=== PATIENT | male | born 1960 | race African-American/Black ===

== ENCOUNTER 2017-01-31 16:39 | Emergency (ER) | payer SELFPAY ==
[~2017-01-31] VITALS: Ht 177.8 cm; Wt 84.0 kg
[~2017-01-31 16:39] MED LIST: ACET1TAB40 PO; CEPH-443 PO; IBUP-1542 PO
[2017-01-31 17:06] VITALS: Ht 177.8 cm; Wt 84.0 kg
== END 2017-01-31 20:43 | disposition left against medical advice (07) ==
LOC: E/R 16:39
DX: Z53.21 Procedure and treatment not carried out due to patient leaving prior to being seen by health care provider (principal)

== ENCOUNTER 2017-02-07 11:47 | Inpatient (IN) | payer MEDICAID ==
[~2017-02-07] VITALS: Ht 172.7 cm; Wt 85.5 kg
[2017-02-07] MEDS ORDERED: SOD CHLORIDE 0.9% 1,000 ML IV STA (14:40)
[2017-02-07] MEDS ORDERED: morphine 2 MG INJ IV STA (14:40)
--- NOTE | 2017-02-07 15:45 | RADRPT ---
PROCEDURE: CT scan of the abdomen and pelvis without IV contrast. CLINICAL INDICATION: Abdominal pain. TECHNIQUE: Thin section axial, coronal and sagittal images were performed through the abdomen and pelvis without contrast. Radiation Dose: CTDI: 15.2 and DLP: 918.4 One or more of the following dose reduction techniques were used: - Automated exposure control. - Adjustment of the mA and/or kV according to patient size. Use of iterative reconstruction technique. COMPARISON: Chest x-ray 11/16/2016 06:18 a.m. FINDINGS: Soft tissues: There is bilateral symmetric gynecomastia.. Lungs and pleural spaces: Normal. There is respiratory motion artifact blurring vascular detail. N o pleural effusion is identified. Heart: Normal. The heart is mildly enlarged. No pericardial effusion is identified. The liver, common bile duct and gallbladder: A 5.7 mm lesion which is likely a cyst is noted in the medial segment of the left lobe of the liver. No additional workup is recommended. The liver measu res 16.5 cm AP. The gallbladder and gallbladder wall are normal. Gastrointestinal: The stomach is normal. There is some mucosal thickening in small bowel loops in t he left upper abdomen. The vermiform appendix is normal. There is mucosal thickening in the hepatic flexure, transverse colon, splenic flexure and rectal amp rojas appear Pancreas: Normal. Kidneys, bladder and adrenal glands : Normal. Spleen: Normal. Lymph nodes: Normal. There is a left inguinal hernia which contains fat. Reproductive system and pelvis : The prostate gland is upper limits of normal for size. The seminal vesicles are normal. No free fluid is noted in the pelvis. There are degenerative changes of the lumbar spine and sacroiliac joints. No acute bony fracture or bone metastasis is identified. Bony elements: There is disk space narrowing with ventral spondylosis and vacuum disk phenomenon at L5-S1. No bone metastasis or acute bony fracture is identified. There is trace air in the epidural space dorsal to S1. Vasculature: Atherosclerotic vascular calcifications are present in the proximal right common iliac artery and in the right left internal iliac arteries. IMPRESSION: 1. Mild cardiomegaly. 2. Hepatomegaly. See C 5.7 mm lesion which is most likely a cyst in the medial segment of the left lobe of the liver. No additional follow-up recommended at this time. 3. Colitis involving portions of the transverse, descending and rectosigmoid colon. Ulcerative col itis could present this fashion. Mucosal thickening of a small bowel loop in the left upper abdomen which may be the result of a small bowel enteritis or incomplete distension. Exact etiology unknow n. 4. Left inguinal hernia containing fat. 5. Bilateral gynecomastia. 6. Atherosclerotic vascular disease. RPTAT:AAJJ Physician Gary Date Time Electronically viewed and signed by Harris Sandra, Physician on 02/07/2017 15:44 CHANDRAKANT/
[2017-02-07 15:47] LABS: ADD SCAN DIFF NO
[2017-02-07 15:52] LABS: BASOPHIL # 0.1 10^3/ul (0.0-0.1); BASOPHILS % 0.3 % (0.0-2.0); EOSINOPHILS # 0.2 10^3/ul (0.0-0.5); EOSINOPHILS % 1.5 % (0.0-7.0); HEMATOCRIT 43.9 % (42.0-52.0); LYMPHOCYTES # 1.5 10^3/ul (0.8-2.9); LYMPHOCYTES % 9.1 % (15.0-51.0); MEAN CORPUSCULAR HEMOGLOBIN 30.6 pg (29.0-33.0); MEAN CORPUSCULAR HGB CONC 31.9 g/dl (32.0-37.0); MEAN CORPUSCULAR VOLUME 96.1 fl (82.0-101.0); MEAN PLATELET VOLUME 10.9 fl (7.4-10.4); MONOCYTE # 0.9 10^3/ul (0.3-0.9); MONOCYTES % 5.8 % (0.0-11.0); NEUTROPHIL # 13.3 10^3/ul (1.6-7.5); NEUTROPHILS % 82.7 % (39.0-77.0); PLATELET COUNT 191 10^3/UL (140-415); RED BLOOD COUNT 4.57 10^6/ul (4.70-6.10); RED CELL DISTRIBUTION WIDTH 12.7 % (11.5-14.5); WHITE BLOOD COUNT 16.1 10^3/ul (4.8-10.8)
[2017-02-07 16:04] LABS: INR 0.9; PARTIAL THROMBOPLASTIN TIME 24.7 Sec (25.0-35.0); PROTIME 12.1 Sec (12.2-14.2); PT RATIO 0.9
[2017-02-07 16:08] LABS: ADD UMIC YES; URINE BILIRUBIN (Dip) NEGATIVE (NEGATIVE); URINE BLOOD (Dip) TRACE (NEGATIVE); URINE COLOR LT. YELLOW (YELLOW); URINE GLUCOSE (Dip) NEGATIVE (NEGATIVE); URINE KETONES (Dip) 3+ (NEGATIVE); URINE LEUKOCYTE ESTERASE (Dip) 2+ (NEGATIVE); URINE NITRITE (Dip) NEGATIVE (NEGATIVE); URINE TOTAL PROTEIN (Dip) NEGATIVE (NEGATIVE); URINE UROBILINOGEN (Dip) 0.2 E.U./dL (0.1-1.0)
[2017-02-07] MEDS ORDERED: CEFTRIAXONE 1 GM/50 ML (PMX) 50 ML IVPB STA (16:17)
--- NOTE | 2017-02-07 16:19 | RADRPT ---
PROCEDURE: Scrotal ultrasound CLINICAL INDICATION: Pain. TECHNIQUE: Scrotal ultrasound was performed with sagittal and transverse views. Dc scale and co pooja imaging was performed. Images were reviewed on high resolution PACS monitors. COMPARISON: None available FINDINGS: The right testicle measures 4.3 x 1.7 x 2.7 cm. There is normal size, echogenicity, and morphology o f the right testicle. The right epididymis is normal in appearance. The left testicle measures 4.0 x 1.9 x 2.5 cm. There is normal size, echogenicity, and morphology of the left testicle. The left epididymis is normal in appearance.. There are small bilateral hydroceles and there is a left varicocele. There is normal flow within the right testicle. There is asymmetric increased flow within the left testicle. IMPRESSION: 1. Left epididymo-orchitis. 2. Small bilateral hydroceles. 3. Left varicocele. RPTAT: GG .Davdi Perera MD, Date Time Electronically viewed and signed by .David Perera MD, MD on 02/07/2017 16:18 .P/
[2017-02-07] MEDS ORDERED: morphine 4 MG/ML VIAL IV STA ×2 (16:20→20:06)
[2017-02-07 16:26] LABS: BACTERIA,URINE MANY; SQUAMOUS EPITHELIAL CELL,UR FEW; URINE RBCS 0-2 /HPF (0)
[2017-02-07] MEDS ORDERED: metroNIDAZOLE 500 MG/NS (PMX) 100 ML IVPB ONE (16:30)
[2017-02-07] MEDS ORDERED: DICLOFENAC SODIUM 37.5 MG/ML VIAL IV STA (16:52)
[2017-02-07] MEDS ORDERED: AZITHROMYCIN 250 MG TAB PO ONE (17:00)
[2017-02-07 17:25] LABS: ALBUMIN/GLOBULIN RATIO 1.29; BILIRUBIN,INDIRECT 0.9 mg/dl (0-1.1); BILIRUBIN,TOTAL 0.9 mg/dl (0.2-1.3); CREATININE 0.69 mg/dl (0.61-1.24); POTASSIUM 4.3 mmol/L (3.5-5.1); TOTAL PROTEIN 7.1 g/dl (6.1-8.1)
[2017-02-07] MEDS ORDERED: ACETAMINOPHEN 325 MG TAB PO PRN (18:00)
[2017-02-07] MEDS ORDERED: ONDANSETRON 4 MG INJ IV PRN (18:00)
--- NOTE | 2017-02-07 18:18 | ERA ---
ER Documentation Chief Complaint Date/Time DATE: 02/07/17 TIME: 18:16 Chief Complaint LEFT SIDE ABDOMINAL AND GROIN PAIN HPI This 56-year-old male presents emergency room with severe left-sided abdominal pain and groin pain going down into his testicles. He is also been feeling generalized weakness and malaise. He denies any trauma. He has had nausea without vomiting. He denies diarrhea. ROS All systems reviewed and are negative except as per history of present illness. Medications Home Meds Active Scripts Ibuprofen* (Motrin*) 600 Mg Tab, 600 MG PO Q6, #30 TAB Prov:HUSSAIN CHAPMAN MD 07/26/16 Discontinued Scripts Acetaminophen with Codeine (Acetaminophen-Cod #3 Tablet) 1 Each Tablet, 1 TAB PO Q6H Y for PAIN, #12 TAB Prov:HUSSAIN CHAPMAN MD 07/26/16 Cephalexin* (Keflex*) 500 Mg Capsule, 500 MG PO QID for 10 Days, CAP Prov:HUSSAIN CHAPMAN MD 07/26/16 Allergies Allergies: Coded Allergies: No Known Allergy (Unverified , 02/07/17) PMhx/Soc Medical and Surgical Hx: pt denies Medical Hx, pt denies Surgical Hx History of Surgery: No Anesthesia Reaction: No Hx Neurological Disorder: No Hx Respiratory Disorders: No Hx Cardiac Disorders: No Hx Psychiatric Problems: No Hx Miscellaneous Medical Probl: No Hx Alcohol Use: No Hx Substance Use: No Hx Tobacco Use: No Smoking Status: Never smoker Physical Exam Vitals Vital Signs Date Time Temp Pulse Resp B/P Pulse Ox O2 Delivery O2 Flow Rate FiO2 02/07/17 18:30 98.0 71 20 106/95 99 Room Air 02/07/17 17:46 75 20 115/75 99 Room Air 02/07/17 11:57 98.0 91 18 127/91 98 Physical Exam Const: [] Moderate distress, holding abdomen, does not appear well Head: Atraumatic Eyes: Normal Conjunctiva ENT: Normal External Ears, Nose and Mouth. Neck: Full range of motion..~ No meningismus. Resp: Clear to auscultation bilaterally Cardio: Regular rate and rhythm, no murmurs Abd: Soft, moderate abdominal tenderness to the mid abdomen as well as left mid and left lower quadrant. Normal appearance of testicles without testicular tenderness, normal appearance of penis without tenderness. non distended. Normal bowel sounds Skin: No petechiae or rashes Back: No midline or flank tenderness Ext: No cyanosis, or edema Neur: Awake and alert and oriented 3, no focal deficits Psych: Normal Mood and Affect Result Diagram: 02/07/17 1540 02/07/17 1540 Results 24 hrs Laboratory Tests Test 02/07/17 15:10 02/07/17 15:40 02/07/17 16:40 Urine Color LT. YELLOW Urine Clarity CLOUDY Urine pH 7.0 Urine Specific [place] 1.020 Urine Ketones 3+ Urine Nitrite NEGATIVE Urine Bilirubin NEGATIVE Urine Urobilinogen 0.2 E.U./dL Urine Leukocyte Esterase 2+ Urine Microscopic RBC 0-2/HPF Urine Microscopic WBC >50/HPF Urine Squamous Epithelial Cells FEW Urine Bacteria MANY Urine Hemoglobin TRACE Urine Glucose NEGATIVE% Urine Total Protein NEGATIVE White Blood Count 16.110^3/ul Red Blood Count 4.5710^6/ul Hemoglobin 14.0g/dl Hematocrit 43.9% Mean Corpuscular Volume 96.1fl Mean Corpuscular Hemoglobin 30.6pg Mean Corpuscular Hemoglobin Concent 31.9g/dl Red Cell Distribution Width 12.7% Platelet Count 77735^3/UL Mean Platelet Volume 10.9fl Neutrophils % 82.7% Lymphocytes % 9.1% Monocytes % 5.8% Eosinophils % 1.5% Basophils % 0.3% Nucleated Red Blood Cells % 0.0/100WBC Neutrophils # 13.310^3/ul Lymphocytes # 1.510^3/ul Monocytes # 0.910^3/ul Eosinophils # 0.210^3/ul Basophils # 0.110^3/ul Nucleated Red Blood Cells # 0.010^3/ul Prothrombin Time 12.1Sec Prothrombin Time Ratio 0.9 INR International Normalized Ratio 0.90 Activated Partial Thromboplast Time 24.7Sec Sodium Level 136mmol/L Potassium Level 4.3mmol/L Chloride Level 108mmol/L Carbon Dioxide Level 23mmol/L Anion Gap 9 Blood Urea Nitrogen 12mg/dl Creatinine 0.69mg/dl Glucose Level 93mg/dl Calcium Level 9.0mg/dl Total Bilirubin 0.9mg/dl Direct Bilirubin 0.00mg/dl Indirect Bilirubin 0.9mg/dl Aspartate Amino Transf (AST/SGOT) 28IU/L Alanine Aminotransferase (ALT/SGPT) 37IU/L Alkaline Phosphatase 58IU/L Total Protein 7.1g/dl Albumin 4.0g/dl Globulin 3.10g/dl Albumin/Globulin Ratio 1.29 Lipase 32U/L Lactic Acid Level 0.8mmol/L Current Medications Medications (Trade) Dose Ordered Sig/Mena Route PRN Reason Start Time Stop Time Status Last Admin Dose Admin Sodium Chloride (NS) 1,000 ml @ 1,000 mls/hr Q1H STAT IV 02/07/17 14:40 02/07/17 15:39 DC 02/07/17 15:46 Morphine Sulfate 2 mg 2 mg ONCE STAT IV 02/07/17 14:40 02/07/17 14:42 DC 02/07/17 15:46 Ceftriaxone Sodium 50 ml @ 100 mls/hr ONCE STAT IVPB 02/07/17 16:17 02/07/17 16:46 DC 02/07/17 16:46 Metronidazole (Flagyl 500 Mg (Pmx)) 100 ml @ 100 mls/hr ONCE ONCE IVPB 02/07/17 16:30 02/07/17 17:29 DC 02/07/17 16:54 Morphine Sulfate (morphine) 4 mg ONCE STAT IV 02/07/17 16:20 02/07/17 16:37 DC 02/07/17 16:55 Azithromycin (Zithromax) 1,000 mg ONCE ONCE PO 02/07/17 17:00 02/07/17 17:01 DC 02/07/17 16:54 Diclofenac Sodium (Dyloject) 37.5 mg ONCE STAT IV 02/07/17 16:52 02/07/17 16:53 DC 02/07/17 17:15 Ondansetron HCl (Zofran Inj) 4 mg BRIDGE ORDER PRN IV NAUSEA AND/OR VOMITING 02/07/17 18:00 02/08/17 17:59 Acetaminophen (Tylenol Tab) 650 mg ER BRIDGE PRN PO MILD PAIN/FEVER 02/07/17 18:00 02/08/17 17:59 Procedures/MDM Patient with acute colitis and elevated white blood cell count as well as UTI. Leukocytosis may be secondary to UTI alone and may have inflammatory bowel disease. No signs of sepsis because of stable vital signs. However patient is ill-appearing. In spite of pain medication he says that the pain is not changing. He is able to sleep in the bed and appears sedated. I am not going to give additional pain medication at this time these had 3 different doses of pain medication and because he is sleeping so comfortably I do not want to over sedate him. It is unusual for a man to have a urinary tract infection and he has no history of any immunosuppression. He definitely should be admitted for further workup as he is ill-appearing. Did give him Rocephin and Flagyl and IV fluids to treat UTI and possible infectious colitis. Blood cultures are pending. Spoke with Dr. Rasmussen will be admitting. CT abdomen pelvis interpretation: Multiple areas of colon wall thickening, no obstruction, no free air, no acute fractures. Departure Diagnosis: Primary Impression: Acute colitis Condition: Stable HARRY ROSE DO Feb 07, 2017 18:18
[2017-02-07] MEDS ORDERED: SOD CHLORIDE 0.9% 1,000 ML IV ONE (20:00)
[2017-02-08] MEDS ORDERED: NACL 0.9% 3 ML SYG IV SCH (02:30)
[2017-02-08] MEDS ORDERED: ALBUTEROL/IPRATROPIUM (NEB) 3 ML AMP HHN PRN (02:30)
[2017-02-08] MEDS ORDERED: ONDANSETRON 4 MG INJ IV PRN (02:30)
[2017-02-08] MEDS: DEXTROSE 5%-0.45% NACL 1,000 ML IV SCH ×3 (03:33→22:03)
[2017-02-08] MEDS: metroNIDAZOLE 500 MG/NS (PMX) 100 ML IVPB SCH ×3 (03:36→23:25)
[2017-02-08 05:30] VITALS: BP 104/57; PULSE 87; RESP 16
[2017-02-08 06:35] LABS: ADD SCAN DIFF NO
[2017-02-08 06:39] LABS: ABNORMAL IP MESSAGE 1; BASOPHILS % 0.1 % (0.0-2.0); HEMATOCRIT 38.6 % (42.0-52.0); HEMOGLOBIN 12.2 g/dl (14.0-18.0); LYMPHOCYTES # 1.5 10^3/ul (0.8-2.9); LYMPHOCYTES % 6.2 % (15.0-51.0); MEAN CORPUSCULAR HEMOGLOBIN 29.8 pg (29.0-33.0); MEAN CORPUSCULAR HGB CONC 31.6 g/dl (32.0-37.0); MEAN CORPUSCULAR VOLUME 94.4 fl (82.0-101.0); MEAN PLATELET VOLUME 10.9 fl (7.4-10.4); MONOCYTES % 4.1 % (0.0-11.0); NEUTROPHIL # 21.6 10^3/ul (1.6-7.5); NEUTROPHILS % 87.9 % (39.0-77.0); PLATELET COUNT 181 10^3/UL (140-415); RED BLOOD COUNT 4.09 10^6/ul (4.70-6.10); WHITE BLOOD COUNT 24.6 10^3/ul (4.8-10.8)
--- NOTE | 2017-02-08 06:39 | HP ---
Date/Time of Note Date/Time of Note DATE: 02/08/17 TIME: 06:29 Assessment/Plan VTE Prophylaxis VTE Prophylaxis Intervention: SCD's Lines/Catheters IV Catheter Type (from Nrsg): Peripheral IV Assessment/Plan Assessment/Plan 1. Sepsis as evidenced by leukocytosis and tachycardia 2/2 Colitis - Keep NPO for now - cont abx - f/u culture results, including C-diff - GI consult - pain mgmt 2. Colitis: infectious vs UC - cont abx - f/u culture results, including C-diff - GI consult 3. UTI - cont abx - f/u culture results 4. left Epididymo-Orchitis - cont abx HPI/ROS Admit Date/Time Admit Date/Time Hx of Present Illness This is a 56 yo male with no significant medical hx who presented to ER c/o abd pain. pain is mainly localized in LLQ area with radiation to his testicles. Denied similar pain in the past. Denied associated diarrhea, constipation, N/V or fever/chills. CT a/p showed Colitis involving portions of the transverse, descending and rectosigmoid colon. Ulcerative colitis could present this fashion. Mucosal thickening of a small bowel loop in the left upper abdomen which may be the result of a small bowel enteritis or incomplete distension. Testicular u/s showed left epididymo-orchitis, small bilateral hydroceles and left varicocele. vitals stable. labs showed WBC of 16,000 otherwise, CBC and CMP within acceptable range. UA consistent with UTI. . . PMH/Family/Social Past Medical History Medical History: no pertinent history Past Surgical History Past Surgical Hx: no surgical history Social History Alcohol Use: none Smoking Status: Never smoker Drug Use: none Exam/Review of Systems Vital Signs Vitals Vital Signs Date Time Temp Pulse Resp B/P Pulse Ox O2 Delivery O2 Flow Rate FiO2 02/08/17 05:30 100.8 87 16 104/57 Room Air 02/08/17 02:00 99 Exam Constitutional: alert, oriented, well developed Head: atraumatic, normocephalic Eyes: EOMI, PERRL Neck: non-tender, supple Respiratory: clear to auscultation, normal air movement Cardiovascular: nl pulses, regular rate and rhythm Gastrointestinal: other (LLQ tenderness), soft, tender Extremities: normal pulses Labs Result Diagram: 02/07/17 1540 02/07/17 1540 Medications Medications Current Medications Dextrose/Sodium Chloride (D5-1/2ns) 1,000 ml @ 100 mls/hr Q10H IV Last administered on 02/08/17 03:33; Admin Dose 100 MLS/HR; Start 02/08/17 at 02:03 Ondansetron HCl (Zofran Inj) 4 mg Q6H PRN IV NAUSEA AND/OR VOMITING; Start at 02:30 Morphine Sulfate (morphine) 3 mg Q4H PRN IV pain; Start 02/08/17 at 02:30 Famotidine 20 mg 20 mg Q12 IV ; Start 02/08/17 at 09:00 Ciprofloxacin/ Dextrose 200 ml @ 200 mls/hr Q12 IVPB ; Start 02/08/17 at 09:00 Metronidazole (Flagyl 500 Mg (Pmx)) 100 ml @ 100 mls/hr Q8 IVPB Last administered on 02/08/17 03:36; Admin Dose 100 MLS/HR; Start 02/08/17 at 02:30 ANDREW ANGELO MD Feb 08, 2017 06:39
[2017-02-08 06:52] LABS: ALBUMIN 3.5 g/dl (3.3-4.9)
[2017-02-08 06:53] LABS: POTASSIUM 3.7 mmol/L (3.5-5.1)
[2017-02-08 06:55] LABS: ALBUMIN/GLOBULIN RATIO 1.12; BILIRUBIN,INDIRECT 1.2 mg/dl (0-1.1); BILIRUBIN,TOTAL 1.2 mg/dl (0.2-1.3); CREATININE 0.8 mg/dl (0.61-1.24); TOTAL PROTEIN 6.6 g/dl (6.1-8.1)
[2017-02-08 06:56] LABS: CALCIUM 8.7 mg/dl (8.4-10.2); PHOSPHORUS 3.1 mg/dl (2.5-4.9)
[2017-02-08 06:57] LABS: MAGNESIUM 1.8 mg/dl (1.7-2.5)
[2017-02-08] MEDS: FAMOTIDINE 20 MG INJ IV SCH ×2 (08:12→21:33)
[2017-02-08] MEDS ORDERED: CIPROFLOXACIN 400MG/D5W 200 ML IVPB SCH (09:00)
[2017-02-08 14:42] VITALS: PULSE 89; TEMP 98.5
--- NOTE | 2017-02-08 16:18 | CONS ---
DATE OF ADMISSION: 02/08/2017 DATE OF CONSULTATION: 02/08/2017 TYPE OF CONSULTATION: Infectious Disease. REASON FOR CONSULTATION: Antibiotic management. HISTORY OF PRESENT ILLNESS: The patient is a 56-year-old male with no significant past medical hist ory who came to the emergency room with abdominal pain localizing in the left lower quadrant with ra diation to the testicles. He denied any similar episodes in the past. Denied associated diarrhea, constipation. CT scan showed colitis involving portions of the transverse, descending, and rectosig moid colon Ulcerative colitis could also present in this fashion. Mucosal thickening of the small b owel in the left upper abdomen. Testicular ultrasound showed left epididymal orchitis, small bilate ral hydroceles, and left varicocele. Vitals stable. Labs showed white count of 16,000 on CBC, and CMP within normal range. On admission while in the emergency room, his white count was 16.1 and now 24.6, H and H 12.6 and 38.6, platelet count 181,000. BUN and creatinine 11/0.8. His urine is 2+ l eukocyte esterase, greater than 50 white cells per high-power field, cloudy urine clarity. An abdom inopelvic CT showed as noted cardiomegaly, hepatomegaly, colitis, left inguinal hernia, bilateral gy necomastia, atherosclerotic vascular disease. PAST MEDICAL HISTORY: Operations as outlined. FAMILY HISTORY: Noncontributory. SOCIAL HISTORY: Does not smoke, drink or abuse drugs. ALLERGIES: NONE TO PENICILLIN, SULFA OR FOODS. MEDICATIONS: Per chart. REVIEW OF SYSTEMS: As per HPI. PHYSICAL EXAMINATION: GENERAL: The patient is a well-developed, well-nourished male. VITAL SIGNS: Temperature on admission of 100.8. SKIN: Without generalized rash. HEENT: Within normal limits. NECK: Supple. LYMPH NODES: None palpable. CHEST: Decreased breath sounds at the bases. HEART: Without murmur or gallop. ABDOMEN: Soft. Slightly tender without rebound, without organosplenomegaly or masses. EXTREMITIES: Without cyanosis, clubbing, or edema. GENITAL/RECTAL: The patient has normal appearance of testicles without testicular tenderness. Exam is deferred otherwise. NEUROLOGICAL: Within normal limits. IMPRESSION AND PLAN: The patient presents with a variety of problems including sepsis as evidenced by leukocytosis, tachycardia, probably secondary to colitis as well as to epididymal orchitis. He p robably as a urinary tract infection as well with 2+ leukocyte esterase and greater than 50 white ce lls per high-power field. The patient was started on ciprofloxacin and Flagyl. He received azithro mycin. I am going to switch him to Zosyn. Discontinue the Cipro. I will dictate my findings to [facility] hospitalist. Dictated By: MIKE BAIRD MD, JD/JUAN LUIS Conf#: [id number] DID#: [id number]
[2017-02-08 16:43] VITALS: Ht 172.7 cm; Wt 85.5 kg
[2017-02-08 17:29] VITALS: BP 116/69; RESP 18
--- NOTE | 2017-02-08 18:24 | CONS ---
Date/Time of Note Date/Time of Note DATE: 02/08/17 TIME: 18:15 Assessment/Plan Assessment/Plan Additional Assessment/Plan LLQ abdominal pain Evaluate infectious process versus inflammatory bowel disease versus other etiology Continue antibiotic treatment May change diet to NPO based on CT results Review C. difficile results Review CT with oral contrast Rule out absess, recommend Surgical consult if positive Colonoscopy as inpatient if clinically indicated Testicular pain May be secondary to UTI May benefit from urology consult Receiving antibiotic treatment Further recommendations depend on clinical course Patient seen in collaboration with Dr. Miguel Consultation Date/Type/Reason Admit Date/Time Type of Consultation: Gastroenterology Hx of Present Illness Mr. Leny Jha is a 60 is a 56-year-old male presented with worsening abdominal pain 1 week. Patient states abdominal pain and lower left quadrant with radiation to testicles. Patient did note loose stool but denies watery diarrhea. Patient denies previous episode. Patient states pain worse with movement. Patient denies family history of colon cancer and inflammatory bowel disease. Patient denies travel outside the [place], sick contacts, nausea, vomiting , fever, chills, and new medications. Patient does not have significant past medical history and has never had colonoscopy. Past Medical History Medical History: no pertinent history Past Surgical History Past Surgical Hx: no surgical history Social History Alcohol Use: none Smoking Status: Current some day smoker Drug Use: none Exam/Review of Systems Vital Signs Vitals Vital Signs Date Time Temp Pulse Resp B/P Pulse Ox O2 Delivery O2 Flow Rate FiO2 02/08/17 17:29 98.7 80 18 116/69 98 02/08/17 14:42 Room Air Exam Constitutional: alert, oriented, well developed Psych: nl mood/affect Head: normocephalic Eyes: EOMI, nl conjunctiva, nl lids ENMT: nl external ears & nose, nl lips & teeth, nl nasal mucosa & septum Respiratory: clear to auscultation, normal air movement Cardiovascular: regular rate and rhythm Gastrointestinal: soft, left lower quadrant tender Musculoskeletal: nl extremities to inspection Neurological: [employer] II-XII intact Results Result Diagram: 02/08/17 0603 02/08/17 0603 Results 24 hrs Laboratory Tests Test 02/08/17 06:03 White Blood Count 24.6 #H Red Blood Count 4.09 L Hemoglobin 12.2 L Hematocrit 38.6 L Mean Corpuscular Volume 94.4 Mean Corpuscular Hemoglobin 29.8 Mean Corpuscular Hemoglobin Concent 31.6 L Red Cell Distribution Width 13.0 Platelet Count 181 Mean Platelet Volume 10.9 H Neutrophils % 87.9 H Lymphocytes % 6.2 L Monocytes % 4.1 Eosinophils % 0.0 Basophils % 0.1 Nucleated Red Blood Cells % 0.0 Neutrophils # 21.6 H Lymphocytes # 1.5 Monocytes # 1.0 H Eosinophils # 0.0 Basophils # 0.0 Nucleated Red Blood Cells # 0.0 Sodium Level 136 Potassium Level 3.7 Chloride Level 102 Carbon Dioxide Level 25 Anion Gap 13 Blood Urea Nitrogen 11 Creatinine 0.80 Glucose Level 126 Calcium Level 8.7 Phosphorus Level 3.1 Magnesium Level 1.8 Total Bilirubin 1.2 Direct Bilirubin 0.00 Indirect Bilirubin 1.2 H Aspartate Amino Transf (AST/SGOT) 20 Alanine Aminotransferase (ALT/SGPT) 30 Alkaline Phosphatase 43 Total Protein 6.6 Albumin 3.5 Globulin 3.10 Albumin/Globulin Ratio 1.12 Medications Medications Current Medications Dextrose/Sodium Chloride (D5-1/2ns) 1,000 ml @ 100 mls/hr Q10H IV Last administered on 02/08/17 03:33; Admin Dose 100 MLS/HR; Start 02/08/17 at 02:03 Ondansetron HCl (Zofran Inj) 4 mg Q6H PRN IV NAUSEA AND/OR VOMITING; Start at 02:30 Morphine Sulfate (morphine) 3 mg Q4H PRN IV pain; Start 02/08/17 at 02:30 Famotidine 20 mg 20 mg Q12 IV Last administered on 02/08/17 08:12; Admin Dose 20 MG; Start 02/08/17 at 09:00 Metronidazole 100 ml @ 100 mls/hr Q8 IVPB Last administered on 02/08/17 03:36 ; Admin Dose 100 MLS/HR; Start 02/08/17 at 02:30 Piperacillin Sod/ Tazobactam Sod (Zosyn 3.375gm/ 100 ml (Pmx)) 100 ml @ 200 mls /hr Q8 IVPB ; Start 02/08/17 at 22:00 ANDRE ADAM Feb 08, 2017 18:24
[2017-02-08] MEDS ORDERED: BARIUM SULF 2% 450 ML BTL (BERRY SMOOTHIE) PO ONE (18:30)
[2017-02-08 21:20] VITALS: BP 120/81; RESP 18
[2017-02-08] MEDS: morphine 4 MG/ML VIAL IV PRN (21:34)
[2017-02-08] MEDS: PIPER-TAZO 3.375 GM IV (PMX) 100 ML IVPB SCH (21:34)
[2017-02-09] MEDS: DEXTROSE 5%-0.45% NACL 1,000 ML IV SCH ×3 (03:40→18:01)
[2017-02-09] MEDS: morphine 4 MG/ML VIAL IV PRN ×2 (03:55→19:52)
[2017-02-09] MEDS: PIPER-TAZO 3.375 GM IV (PMX) 100 ML IVPB SCH ×3 (05:38→21:06)
[2017-02-09 05:57] LABS: ADD SCAN DIFF NO
[2017-02-09 06:12] LABS: BASOPHILS % 0.3 % (0.0-2.0); EOSINOPHILS # 0.1 10^3/ul (0.0-0.5); EOSINOPHILS % 0.9 % (0.0-7.0); HEMATOCRIT 38.3 % (42.0-52.0); HEMOGLOBIN 11.9 g/dl (14.0-18.0); LYMPHOCYTES # 1.1 10^3/ul (0.8-2.9); LYMPHOCYTES % 7.4 % (15.0-51.0); MEAN CORPUSCULAR HEMOGLOBIN 29.4 pg (29.0-33.0); MEAN CORPUSCULAR HGB CONC 31.1 g/dl (32.0-37.0); MEAN CORPUSCULAR VOLUME 94.6 fl (82.0-101.0); MEAN PLATELET VOLUME 11.3 fl (7.4-10.4); MONOCYTE # 0.7 10^3/ul (0.3-0.9); MONOCYTES % 4.6 % (0.0-11.0); NEUTROPHILS % 86.2 % (39.0-77.0); PLATELET COUNT 177 10^3/UL (140-415); RED BLOOD COUNT 4.05 10^6/ul (4.70-6.10); WHITE BLOOD COUNT 15.1 10^3/ul (4.8-10.8)
[2017-02-09] MEDS: metroNIDAZOLE 500 MG/NS (PMX) 100 ML IVPB SCH ×3 (06:44→23:37)
[2017-02-09 06:54] LABS: CALCIUM 8.7 mg/dl (8.4-10.2); CREATININE 0.82 mg/dl (0.61-1.24); POTASSIUM 3.7 mmol/L (3.5-5.1)
[2017-02-09 08:00] VITALS: BP 114/71; RESP 19
[2017-02-09] MEDS: FAMOTIDINE 20 MG INJ IV SCH ×2 (08:07→21:06)
--- NOTE | 2017-02-09 10:01 | CONS ---
Date/Time of Note Date/Time of Note DATE: 02/09/17 TIME: 09:58 Assessment/Plan Assessment/Plan Chief Complaint/Hosp Course Mr. Leny Jha is a 60 is a 56-year-old male presented with worsening abdominal pain 1 week. Patient states abdominal pain and lower left quadrant with radiation to testicles. Patient did note loose stool but denies watery diarrhea. Patient denies previous episode. Patient states pain worse with movement. Patient denies family history of colon cancer and inflammatory bowel disease. Patient denies travel outside the [place], sick contacts, nausea, vomiting , fever, chills, and new medications. Patient does not have significant past medical history and has never had colonoscopy. Problems: Additional Assessment/Plan LLQ abdominal pain Evaluate infectious process versus inflammatory bowel disease versus other etiology Continue antibiotic treatment May change diet to NPO based on CT results Review C. difficile results Review CT with oral contrast Rule out absess, recommend Surgical consult if positive Colonoscopy as inpatient if clinically indicated Testicular pain May be secondary to UTI May benefit from urology consult Receiving antibiotic treatment Further recommendations depend on clinical course Patient seen in collaboration with Dr. Miguel Consultation Date/Type/Reason Admit Date/Time Feb 08, 2017 at 15:59 Initial Consult Date Type of Consultation: Gastroenterology 24 HR Interval Summary Free Text/Dictation Denies abdominal pain CT abdomen in process Exam/Review of Systems Vital Signs Vitals Vital Signs Date Time Temp Pulse Resp B/P Pulse Ox O2 Delivery O2 Flow Rate FiO2 02/09/17 08:00 98.2 65 19 114/71 99 02/08/17 14:42 Room Air Intake and Output 02/08/17 02/08/17 02/09/17 15:00 23:00 07:00 Intake Total 600 ml 1350 ml Balance 600 ml 1350 ml Exam Constitutional: alert, oriented, well developed Psych: nl mood/affect Head: normocephalic Eyes: EOMI, nl conjunctiva, nl lids ENMT: nl external ears & nose, nl lips & teeth, nl nasal mucosa & septum Respiratory: clear to auscultation, normal air movement Cardiovascular: regular rate and rhythm Gastrointestinal: soft, left lower quadrant tender Musculoskeletal: nl extremities to inspection Neurological: [employer] II-XII intact Results Result Diagram: 02/09/17 0446 02/09/17 0446 Results 24 hrs Laboratory Tests Test 02/09/17 04:46 White Blood Count 15.1 #H Red Blood Count 4.05 L Hemoglobin 11.9 L Hematocrit 38.3 L Mean Corpuscular Volume 94.6 Mean Corpuscular Hemoglobin 29.4 Mean Corpuscular Hemoglobin Concent 31.1 L Red Cell Distribution Width 13.0 Platelet Count 177 Mean Platelet Volume 11.3 H Neutrophils % 86.2 H Lymphocytes % 7.4 L Monocytes % 4.6 Eosinophils % 0.9 Basophils % 0.3 Nucleated Red Blood Cells % 0.0 Neutrophils # 13.0 H Lymphocytes # 1.1 Monocytes # 0.7 Eosinophils # 0.1 Basophils # 0.0 Nucleated Red Blood Cells # 0.0 Sodium Level 136 Potassium Level 3.7 Chloride Level 106 Carbon Dioxide Level 25 Anion Gap 9 Blood Urea Nitrogen 10 Creatinine 0.82 Glucose Level 130 Calcium Level 8.7 Phosphorus Level 3.0 Magnesium Level 2.0 Medications Medications Current Medications Dextrose/Sodium Chloride (D5-1/2ns) 1,000 ml @ 100 mls/hr Q10H IV Last administered on 02/09/17 03:40; Admin Dose 100 MLS/HR; Start 02/08/17 at 02:03 Ondansetron HCl (Zofran Inj) 4 mg Q6H PRN IV NAUSEA AND/OR VOMITING; Start at 02:30 Morphine Sulfate (morphine) 3 mg Q4H PRN IV pain Last administered on 03:55; Admin Dose 3 MG; Start 02/08/17 at 02:30 Famotidine 20 mg 20 mg Q12 IV Last administered on 02/09/17 08:07; Admin Dose 20 MG; Start 02/08/17 at 09:00 Metronidazole 100 ml @ 100 mls/hr Q8 IVPB Last administered on 02/09/17 06:44 ; Admin Dose 100 MLS/HR; Start 02/08/17 at 02:30 Piperacillin Sod/ Tazobactam Sod (Zosyn 3.375gm/ 100 ml (Pmx)) 100 ml @ 200 mls /hr Q8 IVPB Last administered on 02/09/17 05:38; Admin Dose 200 MLS/HR; Start 02/08/17 at 22:00 ANDRE ADAM Feb 09, 2017 10:01
--- NOTE | 2017-02-09 17:26 | PN ---
Date/Time of Note Date/Time of Note DATE: 02/09/17 TIME: 17:23 Assessment/Plan VTE Prophylaxis VTE Prophylaxis Intervention: SCD's Lines/Catheters IV C[facility]ter Type (from [facility]): Peripheral IV Urinary Cath still in place: No Assessment/Plan Chief Complaint/Hosp Course 1. Sepsis as evidenced by leukocytosis and tachycardia 2/2 Colitis and/or UTI and/or orchitis Continue antibiotics Zosyn and Flagyl ID and GI consult appreciated 2. Colitis: infectious vs UC cont abx f/u culture results, including C-diff GI consult appreciated 3. UTI - cont abx - f/u culture results Prophylaxis: SCDs Problems: Subjective 24 Hr Interval Summary Constitutional: no complaints Exam/Review of Systems Vital Signs Vitals Vital Signs Date Time Temp Pulse Resp B/P Pulse Ox O2 Delivery O2 Flow Rate FiO2 02/09/17 08:00 98.2 65 19 114/71 99 02/08/17 14:42 Room Air Intake and Output 02/08/17 02/08/17 02/09/17 15:00 23:00 07:00 Intake Total 600 ml 1350 ml Balance 600 ml 1350 ml Exam Constitutional: alert Respiratory: clear to auscultation Cardiovascular: regular rate and rhythm Gastrointestinal: soft, No distended Musculoskeletal: nl extremities to inspection Results Result Diagram: 02/09/17 0446 02/09/17 0446 Results 24 hrs Laboratory Tests Test 02/09/17 04:46 White Blood Count 15.1 #H Red Blood Count 4.05 L Hemoglobin 11.9 L Hematocrit 38.3 L Mean Corpuscular Volume 94.6 Mean Corpuscular Hemoglobin 29.4 Mean Corpuscular Hemoglobin Concent 31.1 L Red Cell Distribution Width 13.0 Platelet Count 177 Mean Platelet Volume 11.3 H Neutrophils % 86.2 H Lymphocytes % 7.4 L Monocytes % 4.6 Eosinophils % 0.9 Basophils % 0.3 Nucleated Red Blood Cells % 0.0 Neutrophils # 13.0 H Lymphocytes # 1.1 Monocytes # 0.7 Eosinophils # 0.1 Basophils # 0.0 Nucleated Red Blood Cells # 0.0 Sodium Level 136 Potassium Level 3.7 Chloride Level 106 Carbon Dioxide Level 25 Anion Gap 9 Blood Urea Nitrogen 10 Creatinine 0.82 Glucose Level 130 Calcium Level 8.7 Phosphorus Level 3.0 Magnesium Level 2.0 Medications Medications Current Medications Dextrose/Sodium Chloride (D5-1/2ns) 1,000 ml @ 100 mls/hr Q10H IV Last administered on 02/09/17 03:40; Admin Dose 100 MLS/HR; Start 02/08/17 at 02:03 Ondansetron HCl (Zofran Inj) 4 mg Q6H PRN IV NAUSEA AND/OR VOMITING; Start at 02:30 Morphine Sulfate (morphine) 3 mg Q4H PRN IV pain Last administered on 03:55; Admin Dose 3 MG; Start 02/08/17 at 02:30 Famotidine 20 mg 20 mg Q12 IV Last administered on 02/09/17 08:07; Admin Dose 20 MG; Start 02/08/17 at 09:00 Metronidazole 100 ml @ 100 mls/hr Q8 IVPB Last administered on 02/09/17 13:32 ; Admin Dose 100 MLS/HR; Start 02/08/17 at 02:30 Piperacillin Sod/ Tazobactam Sod (Zosyn 3.375gm/ 100 ml (Pmx)) 100 ml @ 200 mls /hr Q8 IVPB Last administered on 02/09/17 14:41; Admin Dose 200 MLS/HR; Start 02/08/17 at 22:00 ENA QUIROZ Feb 09, 2017 17:25
--- NOTE | 2017-02-09 20:01 | RADRPT ---
PROCEDURE: CT Abdomen and Pelvis without contrast. CLINICAL INDICATION: Abdominal and pelvic pain. Left lower quadrant pain. TECHNIQUE: CT scan of the abdomen and pelvis without contrast was performed. Coronal and sagittal reformatted images were obtained from the axial source images. Images were reviewed on a high-resolu bepretty PACS workstation. Total exam DLP is 866.04 mGy-cm. CTDIvol is 13.77 mGy. One or more of the f ollowing dose reduction techniques were used: Automated exposure control, adjustment of the mA and/o r kV according to patient size, use of iterative reconstruction technique. COMPARISON: CT scan of the abdomen and pelvis dated 02/07/2017 FINDINGS: The lung bases are normal. There is no pleural effusion. The liver is normal in size and attenuation. There is no focal hepatic lesion. The gallbladder and bile ducts are normal. The spleen is normal in size. There is no focal splenic lesion. Both adrenals are normal with no enlargement or mass. The pancreas is unremarkable with no mass or evidence of pancreatitis. There is no renal mass or hydronephrosis. There is no renal calculus or ureteral calculus. The abdominal aorta is not dilated. Vascular calcifications are present consistent with atherosclero sis. There is no retroperitoneal lymphadenopathy or mass. There is no pelvic lymphadenopathy or mass. The bladder and distal ureters are normal. The periappendiceal region is unremarkable with no evidence of appendicitis. The bowel and mesentery are normal. There is no bowel wall thickening. There is no free fluid or free gas. There is vacuum disk phenomenon at L5-S1. The osseous structures are otherwise unremarkable. IMPRESSION: 1. Atherosclerosis. 2. Normal appearance of the bowel with previously noted thickening of the wall of the colon no long er present. 2. Degenerative changes at L5-S1. 3. Otherwise unremarkable CT scan of the abdomen and pelvis. RPTAT: QQ .Tony Padilla MD, Date Time Electronically viewed and signed by .Tony Padilla MD, on 02/09/2017 20:01 .R/
[2017-02-09 20:16] VITALS: BP 101/68; RESP 20
--- NOTE | 2017-02-09 22:21 | CONS ---
Date/Time of Note Date/Time of Note DATE: 02/09/17 TIME: 21:43 Assessment/Plan Assessment/Plan Chief Complaint/Hosp Course ID PROGRESS NOTE TOTAL ABX DAY #2 => Zosyn #2 + Flagyl #2 s/p Ceftriaxone + Azith in ED 02/08 24H INTERVAL SUMMARY * Feeling much better tonight - He is afebrile, WBC improving and left groin/ scrotal/testicular pain is RESOLVED. * 02/07 urine cx (+) URINE CULTURE Preliminary Organism 1 GRAM NEGATIVE WESLY COLONY COUNT >100,000 CFU/ml Organism 2 GRAM NEGATIVE WESLY#2 COLONY COUNT >100,000 CFU/ml * CT ABD on admission: Colitis involving portions of the transverse, descending and rectosigmoid colon. Ulcerative colitis could present this fashion. Mucosal thickening of a small bowel loop in the left upper abdomen which may be the result of a small bowel enteritis or incomplete distension. Exact etiology unknown. CT 02/09IMPRESSION: 1. Atherosclerosis. 2. Normal appearance of the bowel with previously noted thickening of the wall of the colon no longer present. 2. Degenerative changes at L5-S1. 3. Otherwise unremarkable CT scan of the abdomen and pelvis. PHYSICAL EXAMINATION: GENERAL: Profound weakness, debility, cachexia, frail, HEENT: Temporal wasting NECK: Supple, trach midline CHEST: Equal chest rise bilaterally, without dyspnea on observation EXTREMITIES: Moves all extremities, scattered ecchymosis, intentional tremors ID ASSESSMENT: 56 yo M admitted with: 1. Sepsis w/lactic acidosis 2.5, Tmax 100.1, tachycardia = RESOLVING w/ABX 2. Acute complicated polymicrobial GNR UTI w/1. Left epididymo-orchitis. 2. Small bilateral hydroceles. 3. Left varicocele. * 02/07 urine cx (+) URINE CULTURE Preliminary Organism 1 GRAM NEGATIVE WESLY COLONY COUNT >100,000 CFU/ml Organism 2 GRAM NEGATIVE WESLY#2 COLONY COUNT >100,000 CFU/ml 3. Prostate gland is upper limits of normal for size 4. Left inguinal hernia which contains fat. 5. Colitis involving portions of the transverse, descending and rectosigmoid colon. * CT Ulcerative colitis could present this fashion. Mucosal thickening of a small bowel loop in the left upper abdomen which may be the result of a small bowel enteritis or incomplete distension. Exact etiology unknown. INVASIVES: * PIV ABX ALLERGIES: KNDA CURRENT ABX: TOTAL ABX DAY #2 => Zosyn #2 + Flagyl #2 s/p Ceftriaxone + Azith in ED 02/08 ID RECOMMENDATIONS: 1. Started on appropriate ABX with resolution of colitis, resolving sepsis, pain resolved. 2. Bedrest, ICE may be applied to testicles PRN, Scrotal elevation, NSAIDs, avoid MORPHINE Patient is ; denies hx of GC/Chlamydia/Syphilis/HIV => Give me permission to check STD; however tells me "I don't need to check for HIV, I don' t have risk for that" 3. I gave patient a Medical Disability Notification that he is admitted to [facility] for 1)SIRS, 2)Acute colitis, 3) Complicated polymicrobial UTI -- he requested this so his can fax to his employer tomorrow. He works in a [employer]. 4. Will follow up tomorrow on GNR pathogens ID C&S pending . Problems: Consultation Date/Type/Reason Admit Date/Time Feb 08, 2017 at 15:59 Initial Consult Date Type of Consultation: ID Exam/Review of Systems Vital Signs Vitals Vital Signs Date Time Temp Pulse Resp B/P Pulse Ox O2 Delivery O2 Flow Rate FiO2 02/09/17 20:16 97.7 64 20 101/68 100 02/08/17 14:42 Room Air Intake and Output 02/08/17 02/08/17 02/09/17 15:00 23:00 07:00 Intake Total 600 ml 1350 ml Balance 600 ml 1350 ml Results Result Diagram: 02/09/17 0446 02/09/17 0446 Results 24 hrs Laboratory Tests Test 02/09/17 04:46 White Blood Count 15.1 #H Red Blood Count 4.05 L Hemoglobin 11.9 L Hematocrit 38.3 L Mean Corpuscular Volume 94.6 Mean Corpuscular Hemoglobin 29.4 Mean Corpuscular Hemoglobin Concent 31.1 L Red Cell Distribution Width 13.0 Platelet Count 177 Mean Platelet Volume 11.3 H Neutrophils % 86.2 H Lymphocytes % 7.4 L Monocytes % 4.6 Eosinophils % 0.9 Basophils % 0.3 Nucleated Red Blood Cells % 0.0 Neutrophils # 13.0 H Lymphocytes # 1.1 Monocytes # 0.7 Eosinophils # 0.1 Basophils # 0.0 Nucleated Red Blood Cells # 0.0 Sodium Level 136 Potassium Level 3.7 Chloride Level 106 Carbon Dioxide Level 25 Anion Gap 9 Blood Urea Nitrogen 10 Creatinine 0.82 Glucose Level 130 Calcium Level 8.7 Phosphorus Level 3.0 Magnesium Level 2.0 Medications Medications Current Medications Dextrose/Sodium Chloride (D5-1/2ns) 1,000 ml @ 100 mls/hr Q10H IV Last administered on 02/09/17 18:01; Admin Dose 100 MLS/HR; Start 02/08/17 at 02:03 Ondansetron HCl (Zofran Inj) 4 mg Q6H PRN IV NAUSEA AND/OR VOMITING; Start at 02:30 Morphine Sulfate (morphine) 3 mg Q4H PRN IV pain Last administered on 19:52; Admin Dose 3 MG; Start 02/08/17 at 02:30 Famotidine 20 mg 20 mg Q12 IV Last administered on 02/09/17 21:06; Admin Dose 20 MG; Start 02/08/17 at 09:00 Metronidazole 100 ml @ 100 mls/hr Q8 IVPB Last administered on 02/09/17 13:32 ; Admin Dose 100 MLS/HR; Start 02/08/17 at 02:30 Piperacillin Sod/ Tazobactam Sod (Zosyn 3.375gm/ 100 ml (Pmx)) 100 ml @ 200 mls /hr Q8 IVPB Last administered on 02/09/17 21:06; Admin Dose 200 MLS/HR; Start 02/08/17 at 22:00 RORY LAWTON NP Feb 09, 2017 21:54
[2017-02-09] MEDS ORDERED: traMADol 50 MG TAB GTB PRN (22:30)
[2017-02-10] MEDS: DEXTROSE 5%-0.45% NACL 1,000 ML IV SCH ×2 (04:09→14:03)
[2017-02-10] MEDS: PIPER-TAZO 3.375 GM IV (PMX) 100 ML IVPB SCH ×2 (05:25→14:00)
[2017-02-10 06:08] LABS: ADD SCAN DIFF NO
[2017-02-10 06:14] LABS: BASOPHILS % 0.2 % (0.0-2.0); EOSINOPHILS # 0.3 10^3/ul (0.0-0.5); EOSINOPHILS % 3.4 % (0.0-7.0); HEMATOCRIT 36.2 % (42.0-52.0); HEMOGLOBIN 11.3 g/dl (14.0-18.0); LYMPHOCYTES # 1.4 10^3/ul (0.8-2.9); MEAN CORPUSCULAR HEMOGLOBIN 29.7 pg (29.0-33.0); MEAN CORPUSCULAR HGB CONC 31.2 g/dl (32.0-37.0); MEAN CORPUSCULAR VOLUME 95.3 fl (82.0-101.0); MEAN PLATELET VOLUME 11.5 fl (7.4-10.4); MONOCYTE # 0.5 10^3/ul (0.3-0.9); MONOCYTES % 5.7 % (0.0-11.0); NEUTROPHILS % 75.3 % (39.0-77.0); PLATELET COUNT 171 10^3/UL (140-415); WHITE BLOOD COUNT 9.2 10^3/ul (4.8-10.8)
[2017-02-10] MEDS: metroNIDAZOLE 500 MG/NS (PMX) 100 ML IVPB SCH ×2 (06:28→14:00)
[2017-02-10 06:31] LABS: POTASSIUM 3.5 mmol/L (3.5-5.1)
[2017-02-10 06:34] LABS: CREATININE 0.76 mg/dl (0.61-1.24)
[2017-02-10 06:35] LABS: CALCIUM 8.5 mg/dl (8.4-10.2)
[2017-02-10 08:00] VITALS: BP 103/71; RESP 19
[2017-02-10] MEDS: FAMOTIDINE 20 MG INJ IV SCH (08:45)
--- NOTE | 2017-02-10 13:22 | CONS ---
Date/Time of Note Date/Time of Note DATE: 02/10/17 TIME: 13:17 Assessment/Plan Assessment/Plan Chief Complaint/Hosp Course Mr. Leny Jha is a 60 is a 56-year-old male presented with worsening abdominal pain 1 week. Patient states abdominal pain and lower left quadrant with radiation to testicles. Patient did note loose stool but denies watery diarrhea. Patient denies previous episode. Patient states pain worse with movement. Patient denies family history of colon cancer and inflammatory bowel disease. Patient denies travel outside the [place], sick contacts, nausea, vomiting , fever, chills, and new medications. Patient does not have significant past medical history and has never had colonoscopy. Problems: Additional Assessment/Plan LLQ abdominal pain Resolved Continue antibiotic treatment C. difficile, neg CT with oral contrast, neg Colonoscopy as inpatient not clinically indicated Stable from GI standpoint Testicular pain Resolved May benefit from urology consult Receiving antibiotic treatment Further recommendations depend on clinical course Patient seen in collaboration with Dr. Miguel Consultation Date/Type/Reason Admit Date/Time Feb 08, 2017 at 15:59 Type of Consultation: GI 24 HR Interval Summary Free Text/Dictation Ilan diet Denies abdominal pain and diarrhea CT abdomen normal C diff neg, stool culture neg OK for DC from GI standpoint Exam/Review of Systems Vital Signs Vitals Vital Signs Date Time Temp Pulse Resp B/P Pulse Ox O2 Delivery O2 Flow Rate FiO2 02/10/17 08:00 98.3 57 19 103/71 98 02/08/17 14:42 Room Air Intake and Output 02/09/17 02/09/17 02/10/17 15:00 23:00 07:00 Intake Total 100 ml 1910 ml 1600 ml Balance 100 ml 1910 ml 1600 ml Exam Constitutional: alert, oriented, well developed Psych: nl mood/affect Head: normocephalic Eyes: EOMI, nl conjunctiva, nl lids ENMT: nl external ears & nose, nl lips & teeth, nl nasal mucosa & septum Respiratory: clear to auscultation, normal air movement Cardiovascular: regular rate and rhythm Gastrointestinal: soft, non tender Musculoskeletal: nl extremities to inspection 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 Results Result Diagram: 02/10/17 0520 02/10/17 0520 Results 24 hrs Laboratory Tests Test 02/09/17 15:47 02/10/17 05:20 Stool Occult Blood NEGATIVE White Blood Count 9.2 # Red Blood Count 3.80 L Hemoglobin 11.3 L Hematocrit 36.2 L Mean Corpuscular Volume 95.3 Mean Corpuscular Hemoglobin 29.7 Mean Corpuscular Hemoglobin Concent 31.2 L Red Cell Distribution Width 13.0 Platelet Count 171 Mean Platelet Volume 11.5 H Neutrophils % 75.3 Lymphocytes % 15.0 Monocytes % 5.7 Eosinophils % 3.4 Basophils % 0.2 Nucleated Red Blood Cells % 0.0 Neutrophils # 7.0 Lymphocytes # 1.4 Monocytes # 0.5 Eosinophils # 0.3 Basophils # 0.0 Nucleated Red Blood Cells # 0.0 Sodium Level 139 Potassium Level 3.5 Chloride Level 104 Carbon Dioxide Level 27 Anion Gap 12 Blood Urea Nitrogen 9 Creatinine 0.76 Glucose Level 120 Calcium Level 8.5 Medications Medications Current Medications Dextrose/Sodium Chloride (D5-1/2ns) 1,000 ml @ 100 mls/hr Q10H IV Last administered on 02/10/17 04:09; Admin Dose 100 MLS/HR; Start 02/08/17 at 02:03 Ondansetron HCl (Zofran Inj) 4 mg Q6H PRN IV NAUSEA AND/OR VOMITING; Start at 02:30 Famotidine 20 mg 20 mg Q12 IV Last administered on 02/10/17 08:45; Admin Dose 20 MG; Start 02/08/17 at 09:00 Metronidazole 100 ml @ 100 mls/hr Q8 IVPB Last administered on 02/10/17 06:28 ; Admin Dose 100 MLS/HR; Start 02/08/17 at 02:30 Piperacillin Sod/ Tazobactam Sod (Zosyn 3.375gm/ 100 ml (Pmx)) 100 ml @ 200 mls /hr Q8 IVPB Last administered on 02/10/17 05:25; Admin Dose 200 MLS/HR; Start 02/08/17 at 22:00 Tramadol HCl (Ultram) 50 mg Q6H PRN GTB PAIN; Start 02/09/17 at 22:30 ANDRE ADAM Feb 10, 2017 13:22
--- NOTE | 2017-02-10 14:37 | PDOCDIS ---
Discharge Instructions CONDITION Patient Condition: Good HOME CARE INSTRUCTIONS: Diet Instructions: Regular ACTIVITY: Activity Restrictions: No Restrictions FOLLOW UP/APPOINTMENTS Appointments F/U WITH YOUR PCP IN 1-2 WEEKS ENA QUIROZ Feb 10, 2017 14:37
--- NOTE | 2017-02-10 16:36 | CONS ---
Date/Time of Note Date/Time of Note DATE: 02/10/17 TIME: 15:50 Assessment/Plan Assessment/Plan Chief Complaint/Hosp Course ID PROGRESS NOTE TOTAL ABX DAY #3 => Zosyn #3 + Flagyl #3 s/p Ceftriaxone + Azith in ED 02/08 24H INTERVAL SUMMARY * Symptoms have completed resolved, no fevers, no ABD pain, Feeling much better tonight - He is afebrile, WBC improving and left groin/scrotal/testicular pain is RESOLVED. * URINE CULTURE Final Organism 1 ESCHERICHIA COLI COLONY COUNT >100,000 CFU/ml Organism 2 K.PNEUMONIAE SSP PNEUMONIAE COLONY COUNT >100,000 CFU/ml E COLI K PNE SPP M.I.C. RX M.I.C. RX --------- --- --------- --- AMPICILLIN <=2 S CEFAZOLIN S S CEFOTAXIME S S CIPROFLOXACIN <=0.25 S <=0.25 S GENTAMICIN <=1 S <=1 S LEVOFLOXACIN <=0.12 S <=0.12 S NITROFURANTOIN <=16 S 64 I TOBRAMYCIN <=1 S <=1 S TRIMETHOPRIM/SULFAMETHOXAZOLE <=20 S <=20 S * CT ABD on admission: Colitis involving portions of the transverse, descending and rectosigmoid colon. Ulcerative colitis could present this fashion. Mucosal thickening of a small bowel loop in the left upper abdomen which may be the result of a small bowel enteritis or incomplete distension. Exact etiology unknown. CT 02/09IMPRESSION: 1. Atherosclerosis. 2. Normal appearance of the bowel with previously noted thickening of the wall of the colon no longer present. 2. Degenerative changes at L5-S1. 3. Otherwise unremarkable CT scan of the abdomen and pelvis. PHYSICAL EXAMINATION: GENERAL: Profound weakness, debility, cachexia, frail, HEENT: Temporal wasting NECK: Supple, trach midline CHEST: Equal chest rise bilaterally, without dyspnea on observation EXTREMITIES: Moves all extremities, scattered ecchymosis, intentional tremors ID ASSESSMENT: 56 yo M admitted with: 1. Sepsis w/lactic acidosis 2.5, Tmax 100.1, tachycardia = RESOLVING w/ABX 2. Acute complicated polymicrobial GNR UTI w/1. Left epididymo-orchitis. 2. Small bilateral hydroceles. 3. Left varicocele. * 02/07 urine cx (+) URINE CULTURE Preliminary Organism 1 ESCHERICHIA COLI COLONY COUNT >100,000 CFU/ml Organism 2 K.PNEUMONIAE SSP PNEUMONIAE COLONY COUNT >100,000 CFU/ml E COLI K PNE SPP M.I.C. RX M.I.C. RX --------- --- --------- --- AMPICILLIN <=2 S CEFAZOLIN S S CEFOTAXIME S S CIPROFLOXACIN <=0.25 S <=0.25 S GENTAMICIN <=1 S <=1 S LEVOFLOXACIN <=0.12 S <=0.12 S NITROFURANTOIN <=16 S 64 I TOBRAMYCIN <=1 S <=1 S TRIMETHOPRIM/SULFAMETHOXAZOLE <=20 S <=20 S 3. Prostate gland is upper limits of normal for size 4. Left inguinal hernia which contains fat. 5. Colitis involving portions of the transverse, descending and rectosigmoid colon. * CT Ulcerative colitis could present this fashion. Mucosal thickening of a small bowel loop in the left upper abdomen which may be the result of a small bowel enteritis or incomplete distension. Exact etiology unknown. INVASIVES: * PIV ABX ALLERGIES: KNDA CURRENT ABX: TOTAL ABX DAY #3 => Zosyn #3 + Flagyl #3 s/p Ceftriaxone + Azith in ED 02/08 ID RECOMMENDATIONS: 1. DC planning in process 2. Patient may DC home on Levaquin 500mg po daily x total 10 days -- Rx provided. 3. Patient may return to work full-duty on 02/14/17, without restrictions note provided. * Patient expresses agreement, understands to follow up with outpatient provider after discharge. . Problems: Consultation Date/Type/Reason Admit Date/Time Feb 08, 2017 at 15:59 Type of Consultation: ID Exam/Review of Systems Vital Signs Vitals Vital Signs Date Time Temp Pulse Resp B/P Pulse Ox O2 Delivery O2 Flow Rate FiO2 02/10/17 08:00 98.3 57 19 103/71 98 02/08/17 14:42 Room Air Intake and Output 02/09/17 02/09/17 02/10/17 15:00 23:00 07:00 Intake Total 100 ml 1910 ml 1600 ml Balance 100 ml 1910 ml 1600 ml Results Result Diagram: 02/10/17 0520 02/10/17 0520 Results 24 hrs Laboratory Tests Test 02/10/17 05:20 White Blood Count 9.2 # Red Blood Count 3.80 L Hemoglobin 11.3 L Hematocrit 36.2 L Mean Corpuscular Volume 95.3 Mean Corpuscular Hemoglobin 29.7 Mean Corpuscular Hemoglobin Concent 31.2 L Red Cell Distribution Width 13.0 Platelet Count 171 Mean Platelet Volume 11.5 H Neutrophils % 75.3 Lymphocytes % 15.0 Monocytes % 5.7 Eosinophils % 3.4 Basophils % 0.2 Nucleated Red Blood Cells % 0.0 Neutrophils # 7.0 Lymphocytes # 1.4 Monocytes # 0.5 Eosinophils # 0.3 Basophils # 0.0 Nucleated Red Blood Cells # 0.0 Sodium Level 139 Potassium Level 3.5 Chloride Level 104 Carbon Dioxide Level 27 Anion Gap 12 Blood Urea Nitrogen 9 Creatinine 0.76 Glucose Level 120 Calcium Level 8.5 Rapid Plasma Reagin NONREACTIVE Medications Medications Current Medications Dextrose/Sodium Chloride (D5-1/2ns) 1,000 ml @ 100 mls/hr Q10H IV Last administered on 02/10/17 04:09; Admin Dose 100 MLS/HR; Start 02/08/17 at 02:03 Ondansetron HCl (Zofran Inj) 4 mg Q6H PRN IV NAUSEA AND/OR VOMITING; Start at 02:30 Famotidine 20 mg 20 mg Q12 IV Last administered on 02/10/17 08:45; Admin Dose 20 MG; Start 02/08/17 at 09:00 Metronidazole 100 ml @ 100 mls/hr Q8 IVPB Last administered on 02/10/17 06:28 ; Admin Dose 100 MLS/HR; Start 02/08/17 at 02:30 Piperacillin Sod/ Tazobactam Sod (Zosyn 3.375gm/ 100 ml (Pmx)) 100 ml @ 200 mls /hr Q8 IVPB Last administered on 02/10/17t 05:25; Admin Dose 200 MLS/HR; Start 02/08/17 at 22:00 Tramadol HCl (Ultram) 50 mg Q6H PRN GTB PAIN; Start 02/09/17 at 22:30 RORY LAWTON NP Feb 10, 2017 16:02
--- NOTE | 2017-02-10 18:23 | DS ---
DATE OF ADMISSION: 02/08/2017 DATE OF DISCHARGE: 02/10/2017 DISCHARGE DIAGNOSES: 1. Sepsis secondary to urinary tract infection, possible orchitis, possible colitis, now resolved. The patient is asymptomatic. 2. Colitis. The patient cleared for discharge per GI. 3. Urinary tract infection, status post antibiotics. HOSPITAL COURSE: The patient is a 56-year-old male with no significant medical history. The patien t presents with sepsis with scrotal pain as well as signs of colitis. The patient had a testicular ultrasound that showed left epididymal orchitis, small bilateral hydroceles, left ____. CT abdomen and pelvis was done twice without contrast. The second one showed normal appearance of bowel, previ ously noted thickening of the wall of the colon no longer present, degenerative changes at L5-S1, ot herwise unremarkable CT of abdomen and pelvis. The patient's testicular swelling had resolved. The patient's signs of sepsis had also resolved. His cultures showed negative Clostridium difficile, b lood cultures were negative, and urine showed E. coli and klebsiella. The patient did receive antib iotics during hospitalization. On the day of discharge, the patient's vitals, labs, and physical ex am were stable. He had no acute complaints and questions were answered. CONDITION ON DISCHARGE: Stable. DISPOSITION: To home. MEDICATIONS: The patient to continue his usual home medications. No new medications were prescribe d. FOLLOWUP: The patient is to follow up with his PCP in 1 to 2 weeks. Greater than 30 minutes was spent in coordinating the discharge of patient. Dictated By: ENA CAMERON/JUAN LUIS Conf#: [id number] DID#: [id number]
== END 2017-02-10 18:28 | disposition home or self-care (01) | DRG 872 ==
LOC: E/R 11:47 → PP2 02-08 15:59
PROVIDERS: ADMIT Internal Medicine; ATTEND Internal Medicine
DX: A41.9 Sepsis, unspecified organism (principal); N39.0 Urinary tract infection, site not specified; K52.9 Noninfective gastroenteritis and colitis, unspecified; N45.2 Orchitis; B96.20 Unspecified Escherichia coli [E. coli] as the cause of diseases classified elsewhere; B96.1 Klebsiella pneumoniae [K. pneumoniae] as the cause of diseases classified elsewhere
CPT/HCPCS: 36415; 74176; 76870; 80048; 80053; 81001; 81003; 82270; 83605; 83690; 83735; 84100; 85025; 85610; 85730; 86592; 86780; 87040; 87045; 87075; 87086; 96365; 96366; 96375; 96376; J0696; J0744; J2270; J2543; J7030; J7042

== ENCOUNTER 2017-10-19 01:45 | Emergency (ER) | END 2017-10-19 09:26 | disposition home or self-care (01) ==